=== PATIENT | male | born 1985 | race Caucasian/White ===

== ENCOUNTER 2016-07-11 14:36 | Emergency (ER) | payer SELFPAY ==
[~2016-07-11] VITALS: Ht 177.8 cm; Wt 96.2 kg
[~2016-07-11 14:36] MED LIST: CLIN-62 PO; HYDR1TAB8 PO
--- OUTSIDE RECORDS SUMMARY | 2016-07-11 14:42 | XMS REPORT | Continuity of Care Document ---
Author Author [facility] Address Unknown Phone Unavailable Allergies Medications Problems Date Dx Coded Attending Type Code Diagnosis Diagnosed By 03/12/2012 OFELIA HOLCOMB DO 300.00 AN ANXIETY UNSPEC 03/12/2012 300.00 AN ANXIETY UNSPEC 03/12/2012 OFELIA HOLCOMB DO 300.00 AN ANXIETY UNSPEC 03/12/2012 300.00 AN ANXIETY UNSPEC 03/12/2012 POLLY VALERIO PHD 300.00 AN ANXIETY UNSPEC 03/12/2012 HARI VAZQUEZ MD 300.00 AN ANXIETY UNSPEC 03/12/2012 300.00 AN ANXIETY UNSPEC 03/12/2012 300.00 AN ANXIETY UNSPEC 03/12/2012 OFELIA HOLCOMB DO 300.00 AN ANXIETY UNSPEC 03/12/2012 OFELIA HOLCOMB DO 300.00 AN ANXIETY UNSPEC 03/12/2012 300.00 AN ANXIETY UNSPEC 05/23/2012 558.9 OTHER AND UNSPECIFIED NONINFECTIOUS GASTROENTERITIS AND COLITIS 05/23/2012 OFELIA HOLCOMB DO 558.9 Other And Unspecified Noninfectious Gastroenteritis And Colitis 05/23/2012 558.9 Other And Unspecified Noninfectious Gastroenteritis And Colitis 05/23/2012 POLLY VALERIO PHD 558.9 Other And Unspecified Noninfectious Gastroenteritis And Colitis 05/23/2012 HARI VAZQUEZ MD 558.9 Other And Unspecified Noninfectious Gastroenteritis And Colitis 05/23/2012 558.9 Other And Unspecified Noninfectious Gastroenteritis And Colitis 05/23/2012 558.9 Other And Unspecified Noninfectious Gastroenteritis And Colitis 05/23/2012 OFELIA HOLCOMB DO 558.9 Other And Unspecified Noninfectious Gastroenteritis And Colitis 05/23/2012 OFELIA HOLCOMB DO 558.9 Other And Unspecified Noninfectious Gastroenteritis And Colitis 05/28/2012 OFELIA HOLCOMB DO 311 DEPRESSIVE DISORDER NOS 05/28/2012 311 DEPRESSIVE DISORDER NOS 05/28/2012 POLLY VALERIO PHD 311 DEPRESSIVE DISORDER NOS 05/28/2012 HARI VAZQUEZ MD 311 DEPRESSIVE DISORDER NOS 05/28/2012 311 DEPRESSIVE DISORDER NOS 05/28/2012 311 DEPRESSIVE DISORDER NOS 05/28/2012 OFELIA HOLCOMB DO 311 DEPRESSIVE DISORDER NOS 05/28/2012 OFELIA HOLCOMB DO 311 DEPRESSIVE DISORDER NOS 07/11/2012 296.90 MOOD DISORDER NOS 07/11/2012 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 07/11/2012 POLLY VALERIO PHD 296.90 MOOD DISORDER NOS 07/11/2012 POLLY VALERIO PHD 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 07/11/2012 HARI VAZQUEZ MD 296.90 MOOD DISORDER NOS 07/11/2012 HARI VAZQUEZ MD 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 07/11/2012 296.90 MOOD DISORDER NOS 07/11/2012 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 07/11/2012 296.90 MOOD DISORDER NOS 07/11/2012 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 Visit Date/Time Discharge Status Pt. Type Provider Facility Loc./Unit Complaint [id number] 05/29/2013 16:03:00 05/29/2013 23: 59:59 CLS Outpatient OFELIA HOLCOMB DO [id number] 01/19/2013 17:52:00 01/19/2013 23: 59:59 CLS Outpatient OFELIA HOLCOMB DO [id number] 07/30/2012 15:23:00 07/30/2012 23: 59:59 CLS Outpatient HARI VAZQUEZ MD [id number] 07/15/2012 16:49:00 07/15/2012 23: 59:59 CLS Outpatient TEODORO GOOD, POLLY Shipman [id number] 07/11/2012 08:54:00 07/11/2012 23: 59:59 CLS Outpatient [id number] 05/28/2012 17:35:00 05/28/2012 23: 59:59 CLS Outpatient OFELIA HOLCOMB DO [id number] 05/23/2012 14:55:00 05/23/2012 23: 59:59 CLS Outpatient [id number] 03/12/2012 15:03:00 03/12/2012 23: 59:59 [place] [id number] 03/12/2012 15:03:00 03/12/2012 23: 59:59 CLS Outpatient [id number] 01/13/2013 17:50:00 Document Registration [id number] 10/30/2012 17:08:00 Document Registration
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
[2016-07-11 15:22] LABS: BASOPHILS % (AUTO) 0 % (0-10); EOSINOPHILS # (AUTO) 0.1 10^3/uL (0.0-0.3); EOSINOPHILS % (AUTO) 2 % (0-10); LYMPHOCYTES # (AUTO) 1.8 X 10^3 (1.0-4.0); LYMPHOCYTES % (AUTO) 25 % (12-44); MEAN CORPUSCULAR HEMOGLOBIN 32 PG (25-34); MEAN CORPUSCULAR HGB CONC 37 G/DL (32-36); MEAN CORPUSCULAR VOLUME 87 FL (80-99); MEAN PLATELET VOLUME 8.9 FL (7.4-10.4); MONOCYTES # (AUTO) 0.6 X 10^3 (0.0-1.0); MONOCYTES % (AUTO) 8 % (0-12); NEUTROPHILS # (AUTO) 4.7 X 10^3 (1.8-7.8); NEUTROPHILS % (AUTO) 66 % (42-75); PLATELET COUNT 315 10^3/uL (130-400); RED BLOOD COUNT 4.93 10^6/uL (4.35-5.85); WHITE BLOOD COUNT 7.2 10^3/uL (4.3-11.0)
[2016-07-11 15:23] LABS: BILIRUBIN,URINE NEGATIVE (NEGATIVE); KETONES,URINE NEGATIVE (NEGATIVE); LEUKOCYTE ESTERASE ,URINE NEGATIVE (NEGATIVE); NITRITE,URINE NEGATIVE (NEGATIVE); PH,URINE 6 (5-9); PROTEIN,URINE NEGATIVE (NEGATIVE); UROBILINOGEN,URINE NORMAL (NORMAL)
[2016-07-11 15:37] LABS: SQUAMOUS EPITHELIAL CELL,UR RARE /HPF
[2016-07-11] MEDS ORDERED: IOHEXOL 350 MG/ML 100 ML (OMNIPAQUE 350) VIAL IV ONE (15:45)
[2016-07-11] MEDS ORDERED: CATHETER FLUSH 10 ML SYR IV PRN (15:45)
[2016-07-11] MEDS ORDERED: NS 100 ML (IVPB) BAG IV ONE (15:45)
[2016-07-11 15:47] LABS: ALBUMIN 4.2 G/DL (3.2-4.5); BILIRUBIN,TOTAL 1.1 MG/DL (0.1-1.0); CALCIUM 8.8 MG/DL (8.5-10.1); CREATININE SERUM 1.49 MG/DL (0.60-1.30); POTASSIUM 4.5 MMOL/L (3.6-5.0); TOTAL PROTEIN 6.7 G/DL (6.4-8.2)
[2016-07-11] MEDS ORDERED: NS IV 1000 ML 1,000 ML IV ONE (15:51)
[2016-07-11] MEDS ORDERED: inSUlin (REGULAR) HUMAN 1 UNIT/0.01 ML (CHARGE PER UNIT) IV ONE (16:00)
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
[2016-07-11] MEDS ORDERED: NAPR500T3 PO (16:49)
[2016-07-11 17:20] VITALS: BP 123/78
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
== END 2016-07-11 17:20 | disposition home or self-care (01) ==
LOC: EDUNIT# 14:36 → ER 14:39
DX: S39.012A Strain of muscle, fascia and tendon of lower back, initial encounter (principal); S20.212A Contusion of left front wall of thorax, initial encounter; E11.65 Type 2 diabetes mellitus with hyperglycemia; F17.210 Nicotine dependence, cigarettes, uncomplicated; V43.62XA Car passenger injured in collision with other type car in traffic accident, initial encounter; Y92.410 Unspecified street and highway as the place of occurrence of the external cause; Y99.8 Other external cause status
CPT/HCPCS: 36415; 71020; 71260; 72131; 74177; 80053; 81000; 82150; 82962; 83036; 83690; 85025; 93005; 93041; 96361; 96374

== ENCOUNTER → 2016-08-04 | Outpatient (CLI) | payer SELFPAY ==
[~2016-08-04] MED LIST changes: +NAPR500T3 PO
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
== END ==
LOC: RAD 13:04
PROVIDERS: ATTEND Nurse Practitioner Community Health
DX: M54.16 Radiculopathy, lumbar region (principal); M54.42 Lumbago with sciatica, left side; M54.41 Lumbago with sciatica, right side
CPT/HCPCS: 72148

== ENCOUNTER 2016-10-17 22:37 | Observation (INO) | payer OTHER ==
[~2016-10-17] VITALS: Ht 177.8 cm; Wt 100.7 kg
[2016-10-17] MEDS ORDERED: INSU100V16 SC (22:49)
[2016-10-17] MEDS ORDERED: LISI10TA2 PO (22:49)
[2016-10-17] MEDS ORDERED: ALPR1TAB7 PO (22:49)
[2016-10-17] MEDS ORDERED: METF500T8 PO (22:49)
[2016-10-17] MEDS ORDERED: ZOLP10TA5 PO (22:49)
[2016-10-17] MEDS ORDERED: INSU100I29 SC (22:49)
--- NOTE | 2016-10-17 22:53 | ED Syncope ---
General Chief Complaint: General Problems/Pain Stated Complaint: DIABETES/BLACKING OUT Nursing Triage Note: Patient reports being diagnosed with diabetes 2 months ago and starting on insulin, patient reports that since then he has been 'falling out' patient reports that he falls asleep easily and blacks out Source of Information: Patient, Spouse Exam Limitations: Other (patient very drowsy) History of Present Illness Time Seen by Provider: 22:45 Initial Comments Patient presents along c/ his c/ c/o passing out and excessive drowsiness. Apparently patient was dx c/ IDDM approximately 2 months ago and started on insulin @ that time. These episodes began shortly there after and have been becoming worse. Had an episode of "falling out" while @ work today while he was up on a ladder and his boss sent him home. Denies drug abuse or ETOH use. No recent head injury. Reports his BS was over 300 [employer]ISTANT but he took a dose of Humalog. States his sugars usually run around 300. Timing/Prior Episodes: Multiple Episodes Today, Recent History Symptoms Prior to Episode: Unknown Precipitating Factors: Other (unknown) Loss of Consciousness: Brief (Seconds) Current Symptoms: Other (drowsy; sleepy) Allergies and Home Medications Allergies Coded Allergies: No Known Drug Allergies (Unverified , 12/20/11) Home Medications Alprazolam 1 Mg Tablet, #60 (Reported) Clindamycin Hcl 150 Mg Cap, 1 EACH PO QID, #20 (Reported) Hydrocodone Bit/Ibuprofen 1 Each Tablet, 1 EACH PO q 4 hr prn, #24 (Reported) Insulin Aspart 100 Unit/1 Ml Susp, #20 (Reported) Insulin Detemir 100 Unit/1 Ml Insuln.pen, #15 (Reported) Lisinopril 10 Mg Tablet, #30 (Reported) Metformin HCl 500 Mg Tab.er.24h, #120 (Reported) Naproxen 500 Mg Tablet, 500 MG PO BID, #20 Prescribed by: IVAN VASQUEZ on 07/11/16 1649 Zolpidem Tartrate 10 Mg Tablet, #30 (Reported) Constitutional: see HPI Psychiatric/Neurological: See HPI, Other (syncope; hypersomnolence) All Other Systems Reviewed Negative Unless Noted: Yes (Negative excepted noted.) Past Ichitxo-Cjrerr-Eqqfbv Hx Patient Social History Alcohol Use: Rarely Uses Recreational Drug Use: No Smoking Status: Current Everyday Smoker Type Used: Cigarettes Recent Foreign Travel: No Contact w/Someone Who Travel: No Recent Infectious Disease Expo: No Recent Hopitalizations: No Surgeries HX Surgeries: Yes (L SHOULDER SCOPE, JAW FX/REPAIR) Surgeries: Orthopedic Respiratory Hx Respiratory Disorders: No Cardiovascular Hx Cardiac Disorders: No Neurological Hx Neurological Disorders: No Reproductive System Hx Reproductive Disorders: No Genitourinary Hx Genitourinary Disorders: No Gastrointestinal Hx Gastrointestinal Disorders: No Musculoskeletal Hx Musculoskeletal Disorders: No Endocrine Hx Endocrine Disorders: No Endocrine Disorders: Diabetes, Insulin dep HEENT HX ENT Disorders: No Cancer Hx Cancer: No Psychosocial Hx Psychiatric Problems: Yes Behavioral Health Disorders: Anxiety Integumentary HX Skin/Integumentary Disorder: No Blood Transfusions Hx Blood Disorders: No Physical Exam Vital Signs Vital Sign - Last 12Hours 10/17/16 22:45 Temp 98.2 Pulse 95 Resp 18 B/P (MAP) 135/92 Pulse Ox 99 Capillary Refill : Less Than 3 Seconds General Appearance: No Apparent Distress, WD/WN HEENT: PERRL/EOMI, Normal ENT Inspection, Pharynx Normal Neck: Normal Inspection, Supple Cardiovascular: Regular Rate, Rhythm Respiratory: No Respiratory Distress Neurologic/Psychiatric: Other (very drowsy; acts markedly intoxicated) Cranial Nerves: PERRL Coordination/Gait: Other (sitting up and moving everything, but struggling to stay awake.) Skin: Warm/Dry Progress/Results/Core Measures Results/Orders Lab Results Laboratory Tests Test 10/17/16 22:46 10/17/16 23:00 10/17/16 23:40 Range/Units Glucometer 125 H 70-110 MG/DL White Blood Count 9.7 4.3-11.0 10^3/uL Red Blood Count 5.12 4.35-5.85 10^6/uL Hemoglobin 16.1 13.3-17.7 G/DL Hematocrit 46 40-54 % Mean Corpuscular Volume 90 80-99 FL Mean Corpuscular Hemoglobin 31 25-34 PG Mean Corpuscular Hemoglobin Concent 35 32-36 G/DL Red Cell Distribution Width 12.5 10.0-14.5 % Platelet Count 401 H 130-400 10^3/uL Mean Platelet Volume 8.7 7.4-10.4 FL Neutrophils (%) (Auto) 57 42-75 % Lymphocytes (%) (Auto) 32 12-44 % Monocytes (%) (Auto) 7 0-12 % Eosinophils (%) (Auto) 3 0-10 % Basophils (%) (Auto) 0 0-10 % Neutrophils # (Auto) 5.5 1.8-7.8 X 10^3 Lymphocytes # (Auto) 3.1 1.0-4.0 X 10^3 Monocytes # (Auto) 0.7 0.0-1.0 X 10^3 Eosinophils # (Auto) 0.3 0.0-0.3 10^3/uL Basophils # (Auto) 0.0 0.0-0.1 10^3/uL D-Dimer 0.38 0.00-0.49 UG/ML Sodium Level 140 135-145 MMOL/L Potassium Level 3.6 3.6-5.0 MMOL/L Chloride Level 103 98-107 MMOL/L Carbon Dioxide Level 23 21-32 MMOL/L Anion Gap 14 5-14 MMOL/L Blood Urea Nitrogen 16 7-18 MG/DL Creatinine 0.82 0.60-1.30 MG/DL Estimat Glomerular Filtration Rate > 60 BUN/Creatinine Ratio 20 0-20 Glucose Level 129 H 70-105 MG/DL Hemoglobin A1c 8.8 H 4.5-6.2 % Calcium Level 9.3 8.5-10.1 MG/DL Magnesium Level 2.6 H 1.8-2.4 MG/DL Total Bilirubin 0.7 0.1-1.0 MG/DL Aspartate Amino Transf (AST/SGOT) 13 5-34 U/L Alanine Aminotransferase (ALT/SGPT) 21 0-55 U/L Alkaline Phosphatase 108 40-136 U/L Ammonia 46 H 11-32 UMOL/L Troponin I < 0.30 <0.30 NG/ML Total Protein 6.9 6.4-8.2 GM/DL Albumin 4.2 3.2-4.5 GM/DL Thyroid Stimulating Hormone (TSH) 1.00 0.35-4.94 UIU/ML Serum Alcohol < 10 <10 MG/DL Urine Color YELLOW Urine Clarity CLEAR Urine pH 6 5-9 Urine Specific [place] 1.015 L 1.016-1.022 Urine Protein NEGATIVE NEGATIVE Urine Glucose (UA) 4+ H NEGATIVE Urine Ketones NEGATIVE NEGATIVE Urine Nitrite NEGATIVE NEGATIVE Urine Bilirubin NEGATIVE NEGATIVE Urine Urobilinogen NORMAL NORMAL MG/DL Urine Leukocyte Esterase NEGATIVE NEGATIVE Urine RBC (Auto) NEGATIVE NEGATIVE Urine RBC NONE /HPF Urine WBC NONE /HPF Urine Squamous Epithelial Cells RARE /HPF Urine Crystals NONE /LPF Urine Bacteria NEGATIVE /HPF Urine Casts NONE /LPF Urine Mucus NEGATIVE /LPF Urine Culture Indicated NO Urine Opiates Screen NEGATIVE NEGATIVE Urine Oxycodone Screen NEGATIVE NEGATIVE Urine Methadone Screen NEGATIVE NEGATIVE Urine Propoxyphene Screen NEGATIVE NEGATIVE Urine Barbiturates Screen NEGATIVE NEGATIVE Ur Tricyclic Antidepressants Screen NEGATIVE NEGATIVE Urine Phencyclidine Screen NEGATIVE NEGATIVE Urine Amphetamines Screen POSITIVE H NEGATIVE Urine Methamphetamines Screen NEGATIVE NEGATIVE Urine Benzodiazepines Screen POSITIVE H NEGATIVE Urine Cocaine Screen NEGATIVE NEGATIVE Urine Cannabinoids Screen NEGATIVE NEGATIVE My Orders Orders - KWAME URIBE DO Saline Lock/Iv-Start (10/17/16 22:53) Orthostatic Vital Signs (10/17/16 22:53) Ekg Tracing (10/17/16 22:53) Alcohol (10/17/16 22:53) Ammonia (10/17/16 22:53) Cbc With Automated Diff (10/17/16 22:53) Comprehensive Metabolic Panel (10/17/16 22:53) Fibrin Degradation Products (10/17/16 22:53) Drug Screen Stat (Urine) (10/17/16 22:53) Magnesium (10/17/16 22:53) Thyroid Stimulating Hormone (10/17/16 22:53) Troponin I (10/17/16 22:53) Ua Culture If Indicated (10/17/16 22:53) Ct Head Wo (10/17/16 22:53) Hemoglobin A1c (10/17/16 22:55) Ns Iv 1000 Ml (Sodium Chloride 0.9%) (10/17/16 23:03) Medications Given in ED Current Medications Medications Dose Ordered Sig/Josefa Route Start Time Stop Time Status Last Admin Dose Admin Sodium Chloride 1,000 ml @ 0 mls/hr Q0M ONCE IV 10/17/16 23:03 10/17/16 23:27 DC 10/17/16 23:24 0 MLS/HR Vital Signs/I&O Vital Sign - Last 12Hours 10/17/16 22:45 Temp 98.2 Pulse 95 Resp 18 B/P (MAP) 135/92 Pulse Ox 99 Blood Pressure Mean: 106 Point of Care Testing Finger Stick Blood Glucose: 125 Blood Glucose Action Taken: RN AND DR NOTIFIED ECG Initial ECG Impression Date: Oct 17, 2016 Initial ECG Impression Time: 23:05 Initial ECG Rate: 82 Initial ECG Rhythm: Normal Sinus Initial ECG Intervals: Normal Initial ECG Impression: Normal Initial ECG Comparisson: Unchanged Diagnostic Imaging Diagonstic Imaging: CT Plain Films/CT/US/NM/MRI: head Reviewed: Reviewed [facility] Study (nothing acute) Departure Communication Time/Spoke to Admitting Phy: 00:45 Impression Impression: Primary Impression: Altered level of consciousness Additional Impression: Hyperammonemia Disposition: ADMITTED INPATIENT Condition: Stable Decision to Admit Reason: Admit from ER (General) Decision to Admit/Date: Oct 18, 2016 Time/Decision to Admit Time: 00:50 Departure-Patient Inst. Referrals: [facility] (PCP/Family) Primary Care Physician KWAME URIBE DO Oct 17, 2016 22:53
[2016-10-17] MEDS ORDERED: NS IV 1000 ML 1,000 ML IV ONE (23:03)
[2016-10-17 23:13] LABS: BASOPHILS % (AUTO) 0 % (0-10); EOSINOPHILS # (AUTO) 0.3 10^3/uL (0.0-0.3); EOSINOPHILS % (AUTO) 3 % (0-10); LYMPHOCYTES # (AUTO) 3.1 X 10^3 (1.0-4.0); LYMPHOCYTES % (AUTO) 32 % (12-44); MEAN CORPUSCULAR HEMOGLOBIN 31 PG (25-34); MEAN CORPUSCULAR HGB CONC 35 G/DL (32-36); MEAN CORPUSCULAR VOLUME 90 FL (80-99); MEAN PLATELET VOLUME 8.7 FL (7.4-10.4); MONOCYTES # (AUTO) 0.7 X 10^3 (0.0-1.0); MONOCYTES % (AUTO) 7 % (0-12); NEUTROPHILS # (AUTO) 5.5 X 10^3 (1.8-7.8); NEUTROPHILS % (AUTO) 57 % (42-75); PLATELET COUNT 401 10^3/uL (130-400); RED BLOOD COUNT 5.12 10^6/uL (4.35-5.85); RED CELL DISTRIBUTION WIDTH 12.5 % (10.0-14.5); WHITE BLOOD COUNT 9.7 10^3/uL (4.3-11.0)
[2016-10-17 23:31] LABS: ALANINE AMINOTRANSFERASE 21 U/L (0-55); ALBUMIN 4.2 GM/DL (3.2-4.5); ANION GAP 14 MMOL/L (5-14); ASPARTATE AMINO TRANSFERASE 13 U/L (5-34); BILIRUBIN,TOTAL 0.7 MG/DL (0.1-1.0); BLOOD UREA NITROGEN 16 MG/DL (7-18); BUN/CREATININE RATIO 20 (0-20); CALCIUM 9.3 MG/DL (8.5-10.1); CARBON DIOXIDE 23 MMOL/L (21-32); CHLORIDE 103 MMOL/L (98-107); CREATININE SERUM 0.82 MG/DL (0.60-1.30); GFR ESTIMATED > 60; GLUCOSE 129 MG/DL (70-105); HEMOLYSIS 10 (0-29); ICTERUS 0.7 (0-1.9); LIPEMIA 43 (0-49); MAGNESIUM 2.6 MG/DL (1.8-2.4); POTASSIUM 3.6 MMOL/L (3.6-5.0); SODIUM 140 MMOL/L (135-145); TOTAL PROTEIN 6.9 GM/DL (6.4-8.2)
[2016-10-17 23:43] LABS: ALCOHOL < 10 MG/DL (<10)
[2016-10-17 23:51] LABS: TROPONIN I < 0.30 NG/ML (<0.30)
[2016-10-17 23:51] LABS: BILIRUBIN,URINE NEGATIVE (NEGATIVE); KETONES,URINE NEGATIVE (NEGATIVE); LEUKOCYTE ESTERASE ,URINE NEGATIVE (NEGATIVE); NITRITE,URINE NEGATIVE (NEGATIVE); PH,URINE 6 (5-9); PROTEIN,URINE NEGATIVE (NEGATIVE); UROBILINOGEN,URINE NORMAL (NORMAL)
[2016-10-17 23:56] LABS: SQUAMOUS EPITHELIAL CELL,UR RARE /HPF
[2016-10-18 00:31] LABS: AMMONIA 46 UMOL/L (11-32)
[2016-10-18 01:50] VITALS: BP 121/68
[2016-10-18] MEDS ORDERED: NS IV 1000 ML 1,000 ML ONE (01:51)
[2016-10-18] MEDS: NS IV 1000 ML 1,000 ML IV SCH ×2 (02:00→10:05)
[2016-10-18] MEDS ORDERED: CATHETER FLUSH 10 ML SYR IV PRN (02:15)
[2016-10-18 04:00] VITALS: BP 126/70
[2016-10-18] MEDS: inSUlin (REGULAR) HUMAN 1 UNIT/0.01 ML (CHARGE PER UNIT) SC SCH ×2 (05:18→11:48)
[2016-10-18] MEDS ORDERED: CATHETER FLUSH 10 ML SYR IV SCH (06:00)
[2016-10-18 08:00] VITALS: BP 141/80
--- NOTE | 2016-10-18 08:10 | Diagnostic Imaging Report ---
PROCEDURE: CT head without contrast. TECHNIQUE: Multiple contiguous axial images were obtained through the brain without the use of intravenous contrast. INDICATION: Dizziness, falls . FINDINGS: There is no intracranial hemorrhage, edema or mass effect. The brain parenchyma appears unremarkable. No hydrocephalus. The visualized portions of the orbits and paranasal sinuses appear unremarkable. IMPRESSION: Unremarkable study. This reading agrees with the [facility] report. Dictated by: Dictated on workstation # [id number]
--- NOTE | 2016-10-18 08:39 | Diagnostic Imaging Report ---
Portable upright radiograph of the chest. INDICATION: Dizziness. FINDINGS: The lungs are clear. The heart size is normal. No effusion or pneumothorax. The mediastinum and shirley appear unremarkable. IMPRESSION: Unremarkable exam. Dictated by: Dictated on workstation # [id number]
--- NOTE | 2016-10-18 09:04 | Short Stay Summary ---
HPI History of Present Illness: 31yo gentleman presented to ER with changes in level of consciousness. Pt's states that he has been having episodes where he will be talking to her, and then he drops his head. HE wakes up confused. This happened last night when he passed out and then came to ER. THese episodes have been happening in [facility] past few weeks, but they are now occurring more frequently. He has had them 4 times in the past 4 days. He has also had episodes where his right upper extremity is shaking. In addition to these episodes, Geraldo was recently diagnosed with diabetes and was put on insulin. is concerned that he is bottoming out after the insulin doses and that they are too high. They have met with Gemma once, and his diabetes is being managed by Donnell ordonez. Source: patient, family Exam Limitations: clinical condition (Patient awakens to questions but did not awaken enough to tell me the history) Date seen by provider: Oct 18, 2016 Time Seen by Provider: 08:30 Attending Physician Concetta Smith MD [place] [facility] [place] Date of Admission Oct 18, 2016 at 00:51 Home Medications Home Medications Reviewed patient Home Medication Reconciliation Form Allergies Coded Allergies: No Known Drug Allergies (Unverified , 12/20/11) RSU-Hbyqwt-Vwzlrb Hx Patient Social History Alcohol Use: Rarely Uses Recreational Drug Use: No Smoking Status: Current Everyday Smoker Type Used: Cigarettes Recent Foreign Travel: No Contact w/other who traveled: No Recent Hopitalizations: No Recent Infectious Disease Expo: No Physical Abuse Screen: No Sexual Abuse: No Review of Systems ([facility]) Time Seen by Provider: 08:30 Constitutional: no symptoms reported All Other Systems Reviewed Negative Unless Noted: Yes (Negative excepted noted.) Reviewed Test Results Reviewed Test Results Lab Laboratory Tests Test 10/17/16 22:46 10/17/16 23:00 10/17/16 23:40 10/18/16 05:09 Range/Units Glucometer 125 H 218 H 70-110 MG/DL White Blood Count 9.7 4.3-11.0 10^3/uL Red Blood Count 5.12 4.35-5.85 10^6/uL Hemoglobin 16.1 13.3-17.7 G/DL Hematocrit 46 40-54 % Mean Corpuscular Volume 90 80-99 FL Mean Corpuscular Hemoglobin 31 25-34 PG Mean Corpuscular Hemoglobin Concent 35 32-36 G/DL Red Cell Distribution Width 12.5 10.0-14.5 % Platelet Count 401 H 130-400 10^3/uL Mean Platelet Volume 8.7 7.4-10.4 FL Neutrophils (%) (Auto) 57 42-75 % Lymphocytes (%) (Auto) 32 12-44 % Monocytes (%) (Auto) 7 0-12 % Eosinophils (%) (Auto) 3 0-10 % Basophils (%) (Auto) 0 0-10 % Neutrophils # (Auto) 5.5 1.8-7.8 X 10^3 Lymphocytes # (Auto) 3.1 1.0-4.0 X 10^3 Monocytes # (Auto) 0.7 0.0-1.0 X 10^3 Eosinophils # (Auto) 0.3 0.0-0.3 10^3/uL Basophils # (Auto) 0.0 0.0-0.1 10^3/uL D-Dimer 0.38 0.00-0.49 UG/ML Sodium Level 140 135-145 MMOL/L Potassium Level 3.6 3.6-5.0 MMOL/L Chloride Level 103 98-107 MMOL/L Carbon Dioxide Level 23 21-32 MMOL/L Anion Gap 14 5-14 MMOL/L Blood Urea Nitrogen 16 7-18 MG/DL Creatinine 0.82 0.60-1.30 MG/DL Estimat Glomerular Filtration Rate > 60 BUN/Creatinine Ratio 20 0-20 Glucose Level 129 H 70-105 MG/DL Hemoglobin A1c 8.8 H 4.5-6.2 % Calcium Level 9.3 8.5-10.1 MG/DL Magnesium Level 2.6 H 1.8-2.4 MG/DL Total Bilirubin 0.7 0.1-1.0 MG/DL Aspartate Amino Transf (AST/SGOT) 13 5-34 U/L Alanine Aminotransferase (ALT/SGPT) 21 0-55 U/L Alkaline Phosphatase 108 40-136 U/L Ammonia 46 H 11-32 UMOL/L Troponin I < 0.30 <0.30 NG/ML Total Protein 6.9 6.4-8.2 GM/DL Albumin 4.2 3.2-4.5 GM/DL Thyroid Stimulating Hormone (TSH) 1.00 0.35-4.94 UIU/ML Serum Alcohol < 10 <10 MG/DL Urine Color YELLOW Urine Clarity CLEAR Urine pH 6 5-9 Urine Specific [place] 1.015 L 1.016-1.022 Urine Protein NEGATIVE NEGATIVE Urine Glucose (UA) 4+ H NEGATIVE Urine Ketones NEGATIVE NEGATIVE Urine Nitrite NEGATIVE NEGATIVE Urine Bilirubin NEGATIVE NEGATIVE Urine Urobilinogen NORMAL NORMAL MG/DL Urine Leukocyte Esterase NEGATIVE NEGATIVE Urine RBC (Auto) NEGATIVE NEGATIVE Urine RBC NONE /HPF Urine WBC NONE /HPF Urine Squamous Epithelial Cells RARE /HPF Urine Crystals NONE /LPF Urine Bacteria NEGATIVE /HPF Urine Casts NONE /LPF Urine Mucus NEGATIVE /LPF Urine Culture Indicated NO Urine Opiates Screen NEGATIVE NEGATIVE Urine Oxycodone Screen NEGATIVE NEGATIVE Urine Methadone Screen NEGATIVE NEGATIVE Urine Propoxyphene Screen NEGATIVE NEGATIVE Urine Barbiturates Screen NEGATIVE NEGATIVE Ur Tricyclic Antidepressants Screen NEGATIVE NEGATIVE Urine Phencyclidine Screen NEGATIVE NEGATIVE Urine Amphetamines Screen POSITIVE H NEGATIVE Urine Methamphetamines Screen NEGATIVE NEGATIVE Urine Benzodiazepines Screen POSITIVE H NEGATIVE Urine Cocaine Screen NEGATIVE NEGATIVE Urine Cannabinoids Screen NEGATIVE NEGATIVE Test 10/18/16 05:15 Range/Units Ammonia 39 H 11-32 UMOL/L Physical Exam-(CHC) Physical Exam Vital Signs VS - Last 72 Hours, by Label 10/17/16 10/18/16 10/18/16 10/18/16 22:45 01:39 01:50 03:33 Temp 98.2 97.3 Pulse 95 80 71 63 Resp 18 14 16 B/P (MAP) 135/92 121/68 Pulse Ox 99 97 97 O2 Delivery Room Air Room Air 10/18/16 10/18/16 04:00 08:00 Temp 96.2 96.3 Pulse 69 66 Resp 16 20 B/P (MAP) 126/70 141/80 Pulse Ox 97 96 O2 Delivery Room Air Room Air Capillary Refill : Less Than 3 Seconds General Appearance: WD/WN, no apparent distress HEENT: PERRL/EOMI, normal ENT inspection, pharynx normal Neck: non-tender, full range of motion, supple, normal inspection Respiratory: chest non-tender, lungs clear, normal breath sounds, no respiratory distress, no accessory muscle use Cardiovascular: regular rate, rhythm, no edema, no gallop, no JVD, no murmur Gastrointestinal: normal bowel sounds, non tender, soft, no organomegaly, no pulsatile mass Extremities: normal range of motion, non-tender, normal inspection, no pedal edema, no calf tenderness, normal capillary refill Neurologic/Psychiatric: cancer center director II-XII nml as tested, no motor/sensory deficits, alert (easily aroused but sleepy), normal mood/affect, oriented x 3 Skin: normal color, warm/dry Short Stay Diagnosis Discharge Diagnosis-Short Stay Admission Diagnosis SEIZURE DISORDER AMPHETAMINE USE TYPE 2 DIABETES MELLITUS - INSULIG REQUIRING Final Discharge Diagnosis SEIZURE DISORDER AMPHETAMINE USE TYPE 2 DIABETES MELLITUS - INSULIG REQUIRING Conclusion Plan SEIZURE DISORDER I suspect a new-onset seizure disorder in this patient. I called [facility] and spoke with Dr Ayon, neurologist. He states that these episodes are not likely to be seizures but more likely related to withdrawal from benzos. He advised me to change from Xanax to Klonopin 0.5mg BID. This would help with withdrawals as well as any seizures. He also stated that Gregorio should follow up with a neurologist as an outpatient. He gave the number [phone] to call. I would like for Gregorio to have an outpatient EEG done in the meantime as neurology is quite booked out. There is also a chance that his BS are dropping too low with christa administration of insulin, and we should back off on the insulin until we figure whether it is a part of the problem. Finally, I have instructed both Gregorio and his that he should not drive at all nor should he be working until these episodes are resolved and we have a reason that they are happening. AMPHETAMINE USE I asked Gregorio's why eh was positive for amphetamines. She told me taht he was taking a sinus medication. I do want to entertain the thought that he may be having drug reactions, especially if he is using Xanax and Ambien (both of which he is prescribed) as well as taking amphetamines together. TYPE 2 DIABETES MELLITUS - INSULIn REQUIRING Will send a note to his PCP regarding this glucose control. May not want it to be quite so tight in christa meantime. I have asked his to reduce the insulin dose from 25-30 to 20 units with meals for now. He is supossed to be doing Levemir 30 units BID but has only been doing levemir 50 units HS. I suspect there is a degree of miscommunication here, and this should be discussed at the follow up visits so we can see if he is truly bottoming out. Clinical Quality Measures DVT/VTE Risk/Contraindication: Risk Factor Score Per Nursin RFS Level Per Nursing on Admit: 1=Low/No VTE PPX Copy Copies To 1: CONCETTA ALEXANDER APRN, MD Oct 18, 2016 09:04
[2016-10-18] MEDS ORDERED: HYDR-3820 PO (09:38)
[2016-10-18] MEDS ORDERED: CLON0.5T PO (10:18)
--- NOTE | 2016-10-18 10:23 | Discharge Instructions ---
Discharge [facility] Discharge Medications New, Converted or Re-Newed RX: Call to Patients Pharmacy New Medications: Clonazepam (Klonopin) 0.5 Mg Tablet 0.5 MG PO BID for 14 Days, #28 TAB 0 Refills Continued Medications: Hydrocodone/Acetaminophen (Hydrocodon-Acetaminophn 10-325) 1 Each Tablet 1 TAB PO BID PRN for PAIN-MODERATE, TAB Insulin Aspart (Novolog) 100 Unit/1 Ml Susp 25 UNITS SC TIDWM, EA Insulin Detemir (Levemir Flextouch) 100 Unit/1 Ml Insuln.pen 50 UNITS SC HS, EA Lisinopril (Lisinopril) 10 Mg Tablet 10 MG PO DAILY, TAB Metformin HCl (Metformin HCl ER) 500 Mg Tab.er.24h 1000 MG PO BID, TAB TAKES 2 (500MG) TABLETS Discontinued Medications: Alprazolam (Alprazolam) 1 Mg Tablet 1 MG PO BID PRN for ANXIETY, TAB Zolpidem Tartrate (Zolpidem Tartrate) 10 Mg Tablet 10 MG PO HS PRN for SLEEP, TAB Patient Instructions Goal/Follow Up Appt: SaturdayOCTOBER [address] COURTNEY -DR COURTNEY WILL ARRANGE AN OUTPATIENT EEG WHICH IS THE TEST USED TO DETERMINE IF SOMEONE IS HAVING SEIZURES. Patient Instructions: PLEASE STOP THE ALPRAZOLAM AND ZOLPIDEM. START CLONAZEPAM IT WILL HELP IF THESE EPISODES ARE SEIZURES. DO NOT TAKE ANY MEDICATIONS YOU ARE NOT PRESCRIBED. YOUR URINE DRUG SCREEN WAS POSITVE FOR AMPHETAMINES; THIS COULD BE CAUSING THE EPISODES. 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 Return to The Hospital For: FURTHER EPISODES - IF THEY ARE LONGER IN DURATION OR HAPPEN MORE THAN ONCE PER DAY Activity & Diet Discharge Diet: No Restrictions Activity as Tolerated: No (SEE ABOVE FOR LIMITATIONS) Copy Copies To 1: CONCETTA ALEXANDER APRN, MD Oct 18, 2016 10:22
[2016-10-18] MEDS ORDERED: inSUlin ASPART (NovoLOG) 1 UNIT/0.01 ML (CHARGE PER UNIT) ONE (11:46)
[2016-10-18] MEDS ORDERED: inSUlin ASPART (NovoLOG) 1 UNIT/0.01 ML (CHARGE PER UNIT) SC NR (11:58)
[2016-10-18 12:00] VITALS: BP 125/68
[2016-10-18 14:27] VITALS: BP 125/68
== END 2016-10-18 10:18 | disposition home or self-care (01) ==
LOC: EDUNIT# 22:37 → ER 22:38 → 4TH 10-18 00:51 → UNDOADMOB 10-18 00:51 → 4TH 10-18 01:50 → UNDODISOB 10-18 14:30
PROVIDERS: ADMIT Pediatrics; ATTEND Pediatrics
DX: G40.909 Epilepsy, unspecified, not intractable, without status epilepticus (principal); F15.90 Other stimulant use, unspecified, uncomplicated; E11.9 Type 2 diabetes mellitus without complications; Z79.4 Long term (current) use of insulin
CPT/HCPCS: 36415; 70450; 71010; 80053; 80306; 80320; 81000; 82140; 82962; 83036; 83735; 84443; 84484; 85025; 85379; 93005; 96360; G0378

== ENCOUNTER 2016-11-15 22:38 | Inpatient (IN) | payer OTHER ==
[~2016-11-15] VITALS: Ht 177.8 cm; Wt 98.9 kg
[~2016-11-15 22:38] MED LIST changes: +ALPR1TAB7 PO; +CLON0.5T PO; +HYDR-3820 PO; +INSU100I29 SC; +INSU100V16 SC; +LISI10TA2 PO; +METF500T8 PO; +ZOLP10TA5 PO
--- OUTSIDE RECORDS SUMMARY | 2016-11-15 22:44 | XMS REPORT | Continuity of Care Document ---
Author Author [facility] Address Unknown Phone Unavailable Allergies Medications Problems [...] Procedures Code [place] [address] PSYCH DIAGNOSTIC EVALUATION 07/16/2012 55268 PSYCHO TESTING 1 HR W COMP 07/16/2012 74650 PSYTX PT&/FAMILY 45 MINUTES 01/14/2013 Results Encounters ACCT No. Visit Date/Time Discharge Status Pt. Type Provider Facility Loc./Unit Complaint [id number] 05/29/2013 16:03:00 05/29/2013 23: 59:59 CLS Outpatient OFELIA HOLCOMB DO [id number] 01/19/2013 17:52:00 01/19/2013 23: 59:59 CLS Outpatient OFELIA HOLCOMB DO [id number] 07/30/2012 15:23:00 07/30/2012 23: 59:59 CLS Outpatient HARI VAZQUEZ MD [id number] 07/15/2012 16:49:00 07/15/2012 23: 59:59 CLS Outpatient TEODORO GOOD, POLLY Shipman [id number] 07/11/2012 08:54:00 07/11/2012 23: 59:59 CLS Outpatient [id number] 05/28/2012 17:35:00 05/28/2012 23: 59:59 CLS Outpatient OFELIA HOLCOMB DO [id number] 05/23/2012 14:55:00 05/23/2012 23: 59:59 CLS Outpatient [id number] 03/12/2012 15:03:00 03/12/2012 23: 59:59 [place] [id number] 03/12/2012 15:03:00 03/12/2012 23: 59:59 CLS Outpatient [id number] 01/13/2013 17:50:00 Document Registration [id number] 10/30/2012 17:08:00 Document Registration
[2016-11-15] MEDS ORDERED: NS IV 1000 ML 1,000 ML IV ONE (23:14)
[2016-11-15] MEDS ORDERED: TETANUS,DIPTH,PERTUSS P/F (BOOSTRIX) 0.5 ML VIAL IM ONE (23:15)
[2016-11-15] MEDS ORDERED: CLINDAMYCIN INJECTION 900 MG in NS (IVPB) 50 ML IV ONE (23:15)
[2016-11-15 23:35] LABS: RED BLOOD COUNT 4.99 10^6/uL (4.35-5.85)
[2016-11-15 23:36] LABS: BASOPHILS % (AUTO) 0 % (0-10); EOSINOPHILS # (AUTO) 0.2 10^3/uL (0.0-0.3); EOSINOPHILS % (AUTO) 1 % (0-10); LYMPHOCYTES # (AUTO) 2.2 X 10^3 (1.0-4.0); LYMPHOCYTES % (AUTO) 14 % (12-44); MEAN CORPUSCULAR HEMOGLOBIN 32 PG (25-34); MEAN CORPUSCULAR HGB CONC 35 G/DL (32-36); MEAN CORPUSCULAR VOLUME 91 FL (80-99); MEAN PLATELET VOLUME 8.7 FL (7.4-10.4); MONOCYTES # (AUTO) 1.1 X 10^3 (0.0-1.0); MONOCYTES % (AUTO) 7 % (0-12); NEUTROPHILS # (AUTO) 12.5 X 10^3 (1.8-7.8); NEUTROPHILS % (AUTO) 78 % (42-75); PLATELET COUNT 349 10^3/uL (130-400); RED CELL DISTRIBUTION WIDTH 12.3 % (10.0-14.5)
[2016-11-15 23:56] LABS: ALANINE AMINOTRANSFERASE 17 U/L (0-55); ALBUMIN 4.2 GM/DL (3.2-4.5); ANION GAP 11 MMOL/L (5-14); ASPARTATE AMINO TRANSFERASE 10 U/L (5-34); BILIRUBIN,TOTAL 1.2 MG/DL (0.1-1.0); BLOOD UREA NITROGEN 12 MG/DL (7-18); BUN/CREATININE RATIO 10; CALCIUM 9.1 MG/DL (8.5-10.1); CARBON DIOXIDE 24 MMOL/L (21-32); CHLORIDE 98 MMOL/L (98-107); CREATININE SERUM 1.22 MG/DL (0.60-1.30); GFR ESTIMATED > 60; POTASSIUM 4.2 MMOL/L (3.6-5.0); SODIUM 133 MMOL/L (135-145); hs C REACTIVE PROTEIN 2.05 MG/DL (0.00-0.50)
[2016-11-15 23:57] LABS: GLUCOSE 509 MG/DL (70-105)
[2016-11-16 00:02] LABS: EOSINOPHILS % (MANUAL) 2 %; LYMPHOCYTES % (MANUAL) 18 %; NEUTROPHILS % (MANUAL) 77 %
[2016-11-16] MEDS ORDERED: inSUlin (REGULAR) HUMAN 1 UNIT/0.01 ML (CHARGE PER UNIT) IV ONE (00:15)
--- NOTE | 2016-11-16 00:58 | ED General ---
General Chief Complaint: Skin/Wound Problems Stated Complaint: LT ARM SWELLING Nursing Triage Note: c/o bite, redness, warmth Nursing Sepsis Screen: No Definite Risk Source of Information: Patient Exam Limitations: No Limitations History of Present Illness Time Seen by Provider: 22:55 Initial Comments This 31-year-old gentleman presents to the emergency room with complaints of left arm pain and swelling that started 2 days ago. The area affected has expanded rapidly with worsening symptoms throughout the day today. Margins were marked at 16:30 and he has had marked expansion of erythema since then. The affected area has at least doubled in size. Patient took doxycycline 200 mg at home this morning. He denies any fever, nausea, vomiting, or other acute symptoms. Patient does not know what the inciting factor was. He does not recall being bitten or stung. Patient has diabetes and has had elevated blood sugars. Allergies and Home Medications Allergies Coded Allergies: No Known Drug Allergies (Unverified , 12/20/11) Home Medications Clonazepam 0.5 Mg Tablet, 0.5 MG PO BID for 14 Days, #28 Ref 0 Prescribed by: CONCETTA MONAE on 10/18/16 1018 Hydrocodone/Acetaminophen 1 Each Tablet, 1 TAB PO BID PRN for PAIN-MODERATE, ( Reported) Insulin Aspart 100 Unit/1 Ml Susp, 25 UNITS SC TIDWM, (Reported) Insulin Detemir 100 Unit/1 Ml Insuln.pen, 50 UNITS SC HS, (Reported) Lisinopril 10 Mg Tablet, 10 MG PO DAILY, (Reported) Metformin HCl 500 Mg Tab.er.24h, 1,000 MG PO BID, (Reported) TAKES 2 (500MG) TABLETS Constitutional: no symptoms reported EENTM: no symptoms reported Respiratory: no symptoms reported Cardiovascular: no symptoms reported Gastrointestinal: no symptoms reported Genitourinary: no symptoms reported Musculoskeletal: no symptoms reported Skin: see HPI Psychiatric/Neurological: No Symptoms Reported Hematologic/Lymphatic: No Symptoms Reported Immunological/Allergic: no symptoms reported Past Cmsdluc-Fqyuym-Kkkrrl Hx Patient Social History Alcohol Use: Rarely Uses Recreational Drug Use: No Type Used: Cigarettes Recent Foreign Travel: No Contact w/Someone Who Travel: No Recent Infectious Disease Expo: No Recent Hopitalizations: No Immunizations Up To Date Tetanus Booster (TDap): Unknown Seasonal Allergies Seasonal Allergies: No Surgeries HX Surgeries: Yes (L SHOULDER SCOPE, JAW FX/REPAIR) Surgeries: Orthopedic Respiratory Hx Respiratory Disorders: No Cardiovascular Hx Cardiac Disorders: Yes Cardiac Disorders: Hypertension Neurological Hx Neurological Disorders: No Reproductive System Hx Reproductive Disorders: No Sexually Transmitted Disease: No HIV/AIDS: No Genitourinary Hx Genitourinary Disorders: No Gastrointestinal Hx Gastrointestinal Disorders: No Musculoskeletal Hx Musculoskeletal Disorders: No Endocrine Hx Endocrine Disorders: Yes Endocrine Disorders: Diabetes, Insulin dep HEENT HX ENT Disorders: No Cancer Hx Cancer: No Psychosocial Hx Psychiatric Problems: Yes Behavioral Health Disorders: Anxiety Integumentary HX Skin/Integumentary Disorder: No Blood Transfusions Hx Blood Disorders: No Adverse Reaction to a Blood Tr: No Physical Exam Vital Signs Vital Sign - Last 12Hours 11/15/16 11/16/16 22:45 04:15 Temp 97.1 Pulse 96 Resp 18 B/P (MAP) 128/87 Pulse Ox 99 O2 Delivery Room Air Capillary Refill : Less Than 3 Seconds General Appearance: No Apparent Distress, WD/WN HEENT: Normal ENT Inspection Neck: Normal Inspection Respiratory: Lungs Clear, Normal Breath Sounds, No Accessory Muscle Use, No Respiratory Distress Cardiovascular: Regular Rate, Rhythm, No Edema, No Murmur Gastrointestinal: Non Tender, Soft Extremity: Other (there is a large area of erythema, heat, tenderness, and induration on the left lateral upper arm. 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 Norm as Tested Skin: Other (see above) Lymphatic: No Adenopathy, No Axilla Node Tender (L) Focused Exam Lactic Acid Level Progress/Results/Core Measures Results/Orders Lab Results Laboratory Tests Test 11/15/16 23:20 11/16/16 02:13 11/16/16 04:08 Range/Units White Blood Count 16.0 H 16.8 H 4.3-11.0 10^3/uL Red Blood Count 4.99 4.52 4.35-5.85 10^6/uL Hemoglobin 15.7 14.3 13.3-17.7 G/DL Hematocrit 45 41 40-54 % Mean Corpuscular Volume 91 91 80-99 FL Mean Corpuscular Hemoglobin 32 32 25-34 PG Mean Corpuscular Hemoglobin Concent 35 35 32-36 G/DL Red Cell Distribution Width 12.3 12.3 10.0-14.5 % Platelet Count 349 316 130-400 10^3/uL Mean Platelet Volume 8.7 8.8 7.4-10.4 FL Neutrophils (%) (Auto) 78 H 72 42-75 % Lymphocytes (%) (Auto) 14 18 12-44 % Monocytes (%) (Auto) 7 8 0-12 % Eosinophils (%) (Auto) 1 2 0-10 % Basophils (%) (Auto) 0 0 0-10 % Neutrophils # (Auto) 12.5 H 12.2 H 1.8-7.8 X 10^3 Lymphocytes # (Auto) 2.2 3.0 1.0-4.0 X 10^3 Monocytes # (Auto) 1.1 H 1.4 H 0.0-1.0 X 10^3 Eosinophils # (Auto) 0.2 0.3 0.0-0.3 10^3/uL Basophils # (Auto) 0.0 0.0 0.0-0.1 10^3/uL Neutrophils % (Manual) 77 % Lymphocytes % (Manual) 18 % Monocytes % (Manual) 3 % Eosinophils % (Manual) 2 % Blood Morphology Comment NORMAL Sodium Level 133 L 139 135-145 MMOL/L Potassium Level 4.2 3.6 3.6-5.0 MMOL/L Chloride Level 98 106 98-107 MMOL/L Carbon Dioxide Level 24 24 21-32 MMOL/L Anion Gap 11 9 5-14 MMOL/L Blood Urea Nitrogen 12 11 7-18 MG/DL Creatinine 1.22 0.83 0.60-1.30 MG/DL Estimat Glomerular Filtration Rate > 60 > 60 BUN/Creatinine Ratio 10 13 Glucose Level 509 *H 187 H 70-105 MG/DL Lactic Acid Level 1.91 0.50-2.00 MMOL/L Calcium Level 9.1 8.4 L 8.5-10.1 MG/DL Total Bilirubin 1.2 H 0.1-1.0 MG/DL Aspartate Amino Transf (AST/SGOT) 10 5-34 U/L Alanine Aminotransferase (ALT/SGPT) 17 0-55 U/L Alkaline Phosphatase 121 40-136 U/L C-Reactive Protein High Sensitivity 2.05 H 0.00-0.50 MG/DL Total Protein 7.0 6.4-8.2 GM/DL Albumin 4.2 3.2-4.5 GM/DL Glucometer 104 70-110 MG/DL My Orders Orders - WAGNER LEVINE MD Cbc With Automated Diff (11/15/16 23:14) Comprehensive Metabolic Panel (11/15/16 23:14) Hs C Reactive Protein (11/15/16 23:14) Lactic Acid Analyzer (11/15/16 23:14) Blood Culture (11/15/16 23:14) Saline Lock/Iv-Start (11/15/16 23:14) Ns Iv 1000 Ml (Sodium Chloride 0.9%) (11/15/16 23:14) Clindamycin Injection (Cleocin Injection (11/15/16 23:15) Dipht,Pertuss(Acell),Tet Adult (Boostrix (11/15/16 23:15) Manual Differential (11/15/16 23:20) Insulin (Regular) Human (Humulin R (Per (11/16/16 00:15) Accucheck Stat ONCE (11/16/16 00:46) Ketorolac Injection (Toradol Injection) (11/16/16 01:00) Saline Lock/Iv-Start (11/16/16 01:02) Ns Iv 1000 Ml (Sodium Chloride 0.9%) (11/16/16 01:02) Vancomycin Injection (Vancomycin Injecti (11/16/16 01:15) Medications Given in ED Current Medications Medications Dose Ordered Sig/Josefa Route Start Time Stop Time Status Last Admin Dose Admin Clindamycin Phosphate 900 mg/ Sodium Chloride 56 ml @ 100 mls/hr ONCE ONCE IV 11/15/16 23:15 11/15/16 23:48 DC 11/15/16 23:41 100 MLS/HR Diphtheria/ Tetanus/Acell Pertussis 0.5 ml ONCE ONCE IM 11/15/16 23:15 11/15/16 23:18 DC 11/15/16 23:31 0.5 ML Insulin Human Regular 10 unit ONCE ONCE IV 11/16/16 00:15 11/16/16 00:16 DC 11/16/16 00:15 10 UNIT Sodium Chloride 1,000 ml @ 0 mls/hr Q0M ONCE IV 11/15/16 23:14 11/15/16 23:18 DC 11/15/16 23:30 0 MLS/HR Vital Signs/I&O Vital Sign - Last 12Hours 11/15/16 11/16/16 11/16/16 11/16/16 22:45 01:51 04:15 04:45 Temp 97.1 98.7 99.1 Pulse 96 88 85 Resp 18 18 20 B/P (MAP) 128/87 124/57 Pulse Ox 99 98 98 O2 Delivery Room Air Room Air Blood Pressure Mean: 101 Progress Note : Time: 00:45 Progress Note Labs were ordered along with blood culture. Patient was found to be tachycardic with leukocytosis. He meets sepsis criteria. Bedside ultrasound performed by this provider showed something layering of fluid but no drainable abscess. Clindamycin was given as initial antibiotic therapy. This will be followed up by vancomycin. The rapid spread of the cellulitis on the arm is concerning especially given the use of doxycycline 200 mg at home within the last 24 hours. Patient is receiving Toradol for pain. Initial blood sugar was 509. He received 10 units of IV insulin. Patient also received a liter of IV fluids and remained tachycardic even after hydration. Departure Communication Time/Spoke to Admitting Phy: 00:[address] Concetta Monae Impression Impression: Primary Impression: Sepsis Qualified Codes: A41.9 - Sepsis, unspecified organism Additional Impressions: Left arm cellulitis Hyperglycemia Disposition: ADMITTED INPATIENT Condition: Improved Decision to Admit Reason: Admit from ER (General) Decision to Admit/Date: Nov 16, 2016 Time/Decision to Admit Time: 00:30 Departure-Patient Inst. Referrals: [facility] (PCP) Primary Care Physician KWAME MCCLAIN (Family) Primary Care Physician WAGNER LEVINE MD Nov 16, 2016 00:58
[2016-11-16] MEDS ORDERED: KETOROLAC 30 MG/ML VIAL IVP ONE (01:00)
[2016-11-16] MEDS ORDERED: NS IV 1000 ML 1,000 ML IV ONE (01:02)
[2016-11-16] MEDS ORDERED: VANCOMYCIN INJECTION 1,000 MG in NS (IVPB) 250 ML IV ONE (01:15)
--- OUTSIDE RECORDS SUMMARY | 2016-11-16 01:38 | XMS REPORT | Continuity of Care Document ---
Author Author [facility] Address Unknown Phone Unavailable Allergies [...] Procedures Code [place] [address] PSYCH DIAGNOSTIC EVALUATION 07/16/2012 69988 PSYCHO TESTING 1 HR W COMP 07/16/2012 12232 PSYTX PT&/FAMILY 45 MINUTES 01/14/2013 Results Encounters ACCT No. Visit Date/Time Discharge Status Pt. Type Provider Facility Loc./Unit Complaint [id number] 05/29/2013 16:03:00 05/29/2013 23: 59:59 CLS Outpatient OFELIA HOLCOMB DO [id number] 01/19/2013 17:52:00 01/19/2013 23: 59:59 CLS Outpatient OFELIA HOLCOMB DO [id number] 07/30/2012 15:23:00 07/30/2012 23: 59:59 CLS Outpatient HARI VAZQUEZ MD [id number] 07/15/2012 16:49:00 07/15/2012 23: 59:59 CLS Outpatient TEODORO GOOD, POLLY Shipman [id number] 07/11/2012 08:54:00 07/11/2012 23: 59:59 CLS Outpatient [id number] 05/28/2012 17:35:00 05/28/2012 23: 59:59 CLS Outpatient OFELIA HOLCOMB DO [id number] 05/23/2012 14:55:00 05/23/2012 23: 59:59 CLS Outpatient [id number] 03/12/2012 15:03:00 03/12/2012 23: 59:59 [place] [id number] 03/12/2012 15:03:00 03/12/2012 23: 59:59 CLS Outpatient [id number] 01/13/2013 17:50:00 Document Registration [id number] 10/30/2012 17:08:00 Document Registration
[2016-11-16] MEDS ORDERED: inSUlin DETERMIR 1 UNIT/0.01 ML (LEVEMIR) CHARGE PER UNIT SQ ONE (02:03)
[2016-11-16] MEDS: NS IV 1000 ML 1,000 ML IV SCH ×3 (02:30→21:31)
[2016-11-16 04:15] VITALS: BP 124/57
[2016-11-16 04:41] LABS: BASOPHILS % (AUTO) 0 % (0-10); EOSINOPHILS # (AUTO) 0.3 10^3/uL (0.0-0.3); EOSINOPHILS % (AUTO) 2 % (0-10); LYMPHOCYTES % (AUTO) 18 % (12-44); MEAN CORPUSCULAR HEMOGLOBIN 32 PG (25-34); MEAN CORPUSCULAR HGB CONC 35 G/DL (32-36); MEAN CORPUSCULAR VOLUME 91 FL (80-99); MEAN PLATELET VOLUME 8.8 FL (7.4-10.4); MONOCYTES # (AUTO) 1.4 X 10^3 (0.0-1.0); MONOCYTES % (AUTO) 8 % (0-12); NEUTROPHILS # (AUTO) 12.2 X 10^3 (1.8-7.8); NEUTROPHILS % (AUTO) 72 % (42-75); PLATELET COUNT 316 10^3/uL (130-400); RED BLOOD COUNT 4.52 10^6/uL (4.35-5.85); RED CELL DISTRIBUTION WIDTH 12.3 % (10.0-14.5); WHITE BLOOD COUNT 16.8 10^3/uL (4.3-11.0)
[2016-11-16] MEDS ORDERED: inSUlin DETERMIR 1 UNIT/0.01 ML (LEVEMIR) CHARGE PER UNIT SQ SCH (04:57)
[2016-11-16 05:00] LABS: ANION GAP 9 MMOL/L (5-14); BLOOD UREA NITROGEN 11 MG/DL (7-18); BUN/CREATININE RATIO 13; CALCIUM 8.4 MG/DL (8.5-10.1); CARBON DIOXIDE 24 MMOL/L (21-32); CHLORIDE 106 MMOL/L (98-107); CREATININE SERUM 0.83 MG/DL (0.60-1.30); GFR ESTIMATED > 60; GLUCOSE 187 MG/DL (70-105); POTASSIUM 3.6 MMOL/L (3.6-5.0); SODIUM 139 MMOL/L (135-145)
[2016-11-16] MEDS ORDERED: HYDROcodone/APAP 5 MG/325 MG (LORTAB) TAB PO PRN (05:00)
[2016-11-16] MEDS ORDERED: KETOROLAC 30 MG/ML VIAL IVP PRN (05:00)
[2016-11-16] MEDS: inSUlin (REGULAR) HUMAN 1 UNIT/0.01 ML (CHARGE PER UNIT) SC SCH ×4 (06:17→20:58)
[2016-11-16] MEDS ORDERED: NS (IVPB) 50 ML ONE (06:38)
[2016-11-16] MEDS ORDERED: inSUlin ASPART (NovoLOG) 1 UNIT/0.01 ML (CHARGE PER UNIT) SC SCH (07:00)
[2016-11-16] MEDS ORDERED: CLINDAMYCIN 900 MG/6ML (CLEOCIN) VIAL IV SCH (07:00)
[2016-11-16 08:00] VITALS: BP 130/79
[2016-11-16] MEDS: VANCOMYCIN 1,750 MG/NS 500 ML IVPB IV SCH ×4 (09:13→22:37)
[2016-11-16] MEDS ORDERED: ALPR1TAB7 PO (09:25)
[2016-11-16] MEDS ORDERED: ZOLP10TA5 PO (09:25)
[2016-11-16] MEDS ORDERED: IBUP-30 PO (09:28)
[2016-11-16] MEDS ORDERED: FEXO1TAB40 PO (09:28)
[2016-11-16 12:00] VITALS: BP 131/68
[2016-11-16] MEDS ORDERED: PSEUDOEPHEDRINE HCL 30 MG (SUDAFED) TAB PO PRN (13:00)
[2016-11-16] MEDS ORDERED: IBUPROFEN 800 MG (MOTRIN) TAB PO PRN (13:00)
[2016-11-16] MEDS ORDERED: ZOLPIDEM 5 MG (AMBIEN) TAB PO PRN (13:00)
[2016-11-16] MEDS: inSUlin ASPART (NovoLOG) 1 UNIT/0.01 ML (CHARGE PER UNIT) SC SCH ×2 (13:23→17:10)
[2016-11-16] MEDS: CLINDAMYCIN 900 MG/NS 50 ML IVPB IV SCH ×4 (13:34→21:50)
[2016-11-16] MEDS: HYDROcodone/APAP 10 MG/325 MG (LORTAB) TAB PO PRN (13:41)
[2016-11-16 16:58] VITALS: BP 143/78
[2016-11-16] MEDS: metFORMIN XR 500 MG (GLUCOPHAGE XR) TAB PO SCH (17:10)
[2016-11-16 20:43] VITALS: BP 148/81
--- NOTE | 2016-11-16 21:27 | History & Physicial (CHS) ---
HPI History of Present Illness: 31yo male presented to ER with complaints of LUE pain and swlling. Patient states he had noticed an area on his left upper arm that was tender and red. Thoguht it was a bug bite - no bug was seen. No fever. Edema and redness happened almost overnight whcih is why he sought care in ER. No recent trauma to area. The area has a tattoo but this is old. Lesion was spreading around his arm, so he became concerned. Has not had anything like this before. Source: patient Exam Limitations: no limitations Date seen by provider: Nov 16, 2016 Time Seen by Provider: 11:20 Attending Physician Concetta Monae MD PCP [facility] Date of Admission Nov 16, 2016 at 12:52 am Home Medications Home Medications Reviewed patient Home Medication Reconciliation Form Allergies Coded Allergies: No Known Drug Allergies (Unverified , 12/20/11) ZTU-Famtwm-Utohli Hx Patient Social History Alcohol Use: Rarely Uses Recreational Drug Use: No Smoking Status: Current Everyday Smoker Type Used: Cigarettes Recent Foreign Travel: No Contact w/other who traveled: No Recent Hopitalizations: No Recent Infectious Disease Expo: No Physical Abuse Screen: No Sexual Abuse: No Immunizations Up To Date Tetanus Booster (TDap): Unknown Family Medical History Family History: Hypertension 19 FATHER 19 MOTHER Myocardial infarction 19 MOTHER Seizure disorder G8 SISTER Review of Systems (CHC) Constitutional: no symptoms reported All Other Systems Reviewed Negative Unless Noted: Yes (Negative excepted noted.) Reviewed Test Results Reviewed Test Results Lab Laboratory Tests Test 11/15/16 23:20 11/16/16 02:13 11/16/16 04:08 11/16/16 12:00 Range/Units White Blood Count 16.0 H 16.8 H 4.3-11.0 10^3/uL Red Blood Count 4.99 4.52 4.35-5.85 10^6/uL Hemoglobin 15.7 14.3 13.3-17.7 G/DL Hematocrit 45 41 40-54 % Mean Corpuscular Volume 91 91 80-99 FL Mean Corpuscular Hemoglobin 32 32 25-34 PG Mean Corpuscular Hemoglobin Concent 35 35 32-36 G/DL Red Cell Distribution Width 12.3 12.3 10.0-14.5 % Platelet Count 349 316 130-400 10^3/uL Mean Platelet Volume 8.7 8.8 7.4-10.4 FL Neutrophils (%) (Auto) 78 H 72 42-75 % Lymphocytes (%) (Auto) 14 18 12-44 % Monocytes (%) (Auto) 7 8 0-12 % Eosinophils (%) (Auto) 1 2 0-10 % Basophils (%) (Auto) 0 0 0-10 % Neutrophils # (Auto) 12.5 H 12.2 H 1.8-7.8 X 10^3 Lymphocytes # (Auto) 2.2 3.0 1.0-4.0 X 10^3 Monocytes # (Auto) 1.1 H 1.4 H 0.0-1.0 X 10^3 Eosinophils # (Auto) 0.2 0.3 0.0-0.3 10^3/uL Basophils # (Auto) 0.0 0.0 0.0-0.1 10^3/uL Neutrophils % (Manual) 77 % Lymphocytes % (Manual) 18 % Monocytes % (Manual) 3 % Eosinophils % (Manual) 2 % Blood Morphology Comment NORMAL Sodium Level 133 L 139 135-145 MMOL/L Potassium Level 4.2 3.6 3.6-5.0 MMOL/L Chloride Level 98 106 98-107 MMOL/L Carbon Dioxide Level 24 24 21-32 MMOL/L Anion Gap 11 9 5-14 MMOL/L Blood Urea Nitrogen 12 11 7-18 MG/DL Creatinine 1.22 0.83 0.60-1.30 MG/DL Estimat Glomerular Filtration Rate > 60 > 60 BUN/Creatinine Ratio 10 13 Glucose Level 509 *H 187 H 70-105 MG/DL Lactic Acid Level 1.91 0.50-2.00 MMOL/L Calcium Level 9.1 8.4 L 8.5-10.1 MG/DL Total Bilirubin 1.2 H 0.1-1.0 MG/DL Aspartate Amino Transf (AST/SGOT) 10 5-34 U/L Alanine Aminotransferase (ALT/SGPT) 17 0-55 U/L Alkaline Phosphatase 121 40-136 U/L C-Reactive Protein High Sensitivity 2.05 H 0.00-0.50 MG/DL Total Protein 7.0 6.4-8.2 GM/DL Albumin 4.2 3.2-4.5 GM/DL Glucometer 104 309 H 70-110 MG/DL Test 7/14/17 14:47 11/16/16 20:37 Range/Units Glucometer 195 H 71 70-110 MG/DL Physical Exam-([facility]) Physical Exam Vital Signs VS - Last 72 Hours, by Label 11/15/16 11/16/16 11/16/16 11/16/16 22:45 01:51 04:15 04:45 Temp 97.1 98.7 99.1 Pulse 96 88 85 Resp 18 18 20 B/P (MAP) 128/87 124/57 Pulse Ox 99 98 98 O2 Delivery Room Air Room Air 11/16/16 11/16/16 11/16/16 11/16/16 08:00 12:00 16:58 20:43 Temp 98.4 97.7 97.1 98.2 Pulse 80 74 73 84 Resp 20 16 16 16 B/P (MAP) 130/79 131/68 143/78 148/81 Pulse Ox 97 98 98 99 O2 Delivery Room Air Room Air Room Air Room Air Capillary Refill : Less Than 3 Seconds General Appearance: WD/WN, no apparent distress HEENT: PERRL/EOMI, normal ENT inspection, pharynx normal Neck: non-tender, full range of motion, supple, normal inspection Respiratory: chest non-tender, lungs clear, normal breath sounds, no respiratory distress, no accessory muscle use Cardiovascular: regular rate, rhythm, no edema, no gallop, no JVD, no murmur Gastrointestinal: normal bowel sounds, non tender, soft, no organomegaly Extremities: normal range of motion, non-tender, normal inspection, no pedal edema, no calf tenderness, normal capillary refill 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 will keep on vanc as this is presenting much like a MRSA abscess. pt states an US was done - I still do not have these results. if christa abscess is not improve by the AM, may need a general surgery consult. however, I do believe we might be able to do an I/D at the bedside if the US does not show a deep pocket of infection. UNCONTROLLED T2 DM HALFWAY USE OF INSULIN ADM - restart home regimen, 1800kcal diet. needs much closer control and follow up in [facility] future as an outpatient. TOBACCO ABUSE ADM - counseled cessation, discussed the delays tobacco abuse can have on wound healing. DVT PROPH: pt fully ambulatory Diagnosis/Problems: Clinical Quality Measures DVT/VTE Risk/Contraindication: Risk Factor Score Per Nursin RFS Level Per Nursing on Admit: 3=High Copy Copies To 1: CONCETTA MONAE MD, JULIE A MD Nov 16, 2016 9:27 pm
[2016-11-16] MEDS: inSUlin DETERMIR 1 UNIT/0.01 ML (LEVEMIR) CHARGE PER UNIT SQ SCH (21:50)
[2016-11-16 23:50] VITALS: BP 109/69
[2016-11-17] MEDS ORDERED: VANCOMYCIN 1500 MG/NS 500 ML IVPB IV SCH ×2 (01:00)
[2016-11-17 03:40] VITALS: BP 99/57
[2016-11-17 04:35] LABS: MEAN PLATELET VOLUME 8.7 FL (7.4-10.4); RED BLOOD COUNT 4.58 10^6/uL (4.35-5.85); RED CELL DISTRIBUTION WIDTH 12.3 % (10.0-14.5); WHITE BLOOD COUNT 13.7 10^3/uL (4.3-11.0)
[2016-11-17 05:04] LABS: ANION GAP 9 MMOL/L (5-14); BLOOD UREA NITROGEN 13 MG/DL (7-18); BUN/CREATININE RATIO 16; CALCIUM 8.6 MG/DL (8.5-10.1); CARBON DIOXIDE 24 MMOL/L (21-32); CHLORIDE 104 MMOL/L (98-107); CREATININE SERUM 0.83 MG/DL (0.60-1.30); GFR ESTIMATED > 60; GLUCOSE 278 MG/DL (70-105); POTASSIUM 3.9 MMOL/L (3.6-5.0); SODIUM 137 MMOL/L (135-145)
[2016-11-17] MEDS: metFORMIN XR 500 MG (GLUCOPHAGE XR) TAB PO SCH ×2 (06:48→16:58)
[2016-11-17] MEDS: CLINDAMYCIN 900 MG/NS 50 ML IVPB IV SCH ×6 (06:48→21:42)
[2016-11-17] MEDS: HYDROcodone/APAP 10 MG/325 MG (LORTAB) TAB PO PRN ×2 (06:48→18:30)
[2016-11-17] MEDS: inSUlin (REGULAR) HUMAN 1 UNIT/0.01 ML (CHARGE PER UNIT) SC SCH ×4 (06:48→21:36)
[2016-11-17] MEDS: NS IV 1000 ML 1,000 ML IV SCH ×2 (06:51→12:00)
[2016-11-17] MEDS: inSUlin ASPART (NovoLOG) 1 UNIT/0.01 ML (CHARGE PER UNIT) SC SCH ×2 (07:35→12:21)
[2016-11-17 08:00] VITALS: BP 127/68
[2016-11-17] MEDS: VANCOMYCIN 1,750 MG/NS 500 ML IVPB IV SCH ×2 (08:41)
[2016-11-17] MEDS: lisINopril 10 MG (PRINIVIL) TAB PO SCH (08:41)
[2016-11-17] MEDS: inSUlin DETERMIR 1 UNIT/0.01 ML (LEVEMIR) CHARGE PER UNIT SQ SCH ×2 (08:41→21:42)
[2016-11-17] MEDS ORDERED: LORATADINE (CLARITIN) 10 MG TAB PO PRN (09:00)
[2016-11-17 09:09] VITALS: BP 127/68
--- NOTE | 2016-11-17 11:23 | Discharge Summary ---
Diagnosis/Chief Complaint Date of Admission Nov 16, 2016 at 00:52 Date of Discharge November 18, 2016 Admission Diagnosis Admission Diagnosis Left Upper Extremity cellulitis with Abcess IDDM: Uncontrolled tobacco use Discharge Diagnosis See Above Chief Complaint/HPI Chief Complaint/HPI 31yo male presented to ER with complaints of LUE pain and swlling. Patient states he had noticed an area on his left upper arm that was tender and red. Thoguht it was a bug bite - no bug was seen. No fever. Edema and redness happened almost overnight whcih is why he sought care in ER. No recent trauma to area. The area has a tattoo but this is old. Lesion was spreading around his arm, so he became concerned. Has not had anything like this before. Discharge Summary-Simple/Stand Consultations Dr Ocasio: General Surgery Discharge Physical Examination Allergies: Coded Allergies: No Known Drug Allergies (Unverified , 12/20/11) Vitals & I&Os Vital Sign - Last 12Hours Date Time Temp Pulse Resp B/P (MAP) Pulse Ox O2 Delivery O2 Flow Rate FiO2 11/17/16 09:09 96.0 67 20 127/68 96 Room Air Intake and Output 11/17/16 00:00 Intake Total 1780 ml Output Total 600 ml Balance 1180 ml General Appearance: Alert, Oriented X3, Cooperative HEENT: Atraumatic Respiratory: Clear to Auscultation, Normal Air Movement Cardiovascular: Regular Rate, No Murmurs Extremities: Normal Pulses, Other (Left upper extremity with erythema and induration, no drainage, warm to touch, streaking down arm) Neuro: Normal Gait, Normal Speech, Strength at 5/5 X4 Ext, Sensation Intact Psych/Mental Status: Mental Status NL, Mood NL Hospital Course See final discharge diagnosis. Discussion & Recommendations 31 yo M with Cellulitis and Abscess improving today with IV antibiotics. Will have surgery see patient for drainage. Ok to discharge home on PO antibiotics after procedure. 11/18 - Patient was not NPO and thus had procedure this AM instead of yesterday. Ok to d/c home today with f/u surgery Sat or to have packing removed. Discharge Condition at discharge Stable Instructions to patient/family Please see electonic discharge instructions given to patient. Discharge Medications Reviewed and agree with Discharge Medication list on patient's Discharge Instruction sheet Clinical Quality Measures DVT/VTE Risk/Contraindication: Risk Factor Score Per Nursin RFS Level Per Nursing on Admit: 3=High Copy Copies To 1: RONALDO, AMANDA Beltrán MD Nov 17, 2016 11:23
[2016-11-17] MEDS ORDERED: DOXY100T2 PO (11:25)
--- NOTE | 2016-11-17 11:28 | Discharge Instructions ---
Discharge Inst-[facility] Discharge Medications New, Converted or Re-Newed RX: Other (Patient already has antiboitic at home) New Medications: Doxycycline Hyclate (Doxycycline Hyclate) 100 Mg Tablet 100 MG PO BID for 10 Days, TAB Continued Medications: Fexofenadine/Pseudoephedrine (Poonam-D 12 Hour Tablet) 1 Each Tab.er.12h 1 TAB PO DAILY PRN for ALLERGIES, TAB Hydrocodone/Acetaminophen (Hydrocodon-Acetaminophn 10-325) 1 Each Tablet 1 TAB PO BID PRN for PAIN-MODERATE, TAB Ibuprofen (Advil) 200 Mg Tablet 600-800 MG PO Q8H PRN for PAIN-MILD, TAB Insulin Aspart (Novolog) 100 Unit/1 Ml Susp 25 UNITS SC TIDWM, EA Insulin Detemir (Levemir Flextouch) 100 Unit/1 Ml Insuln.pen 30 UNITS SC BID, EA Lisinopril (Lisinopril) 10 Mg Tablet 10 MG PO DAILY, TAB LAST FILLED #30 09-13-16 Metformin HCl (Metformin HCl ER) 500 Mg Tab.er.24h 1000 MG PO BID, TAB LAST FILLED #120 08-01-16 TAKES 2 (500MG) TABLETS Zolpidem Tartrate (Zolpidem Tartrate) 10 Mg Tablet 10 MG PO HS PRN for SLEEP, TAB Discontinued Medications: Alprazolam (Alprazolam) 1 Mg Tablet 1 MG PO BID PRN for ANXIETY, TAB Patient Instructions Goal/Follow Up Appt: You have a follow up appt with Donnell Suggs on November 22 @ 840 AM Patient Instructions: - Make sure that you keep area clean - Soak in warm water or use warm compresses at least 3 times per day Return to The Hospital For: - Increasing pain, numbness or weakness in arm or hand - Unable to tolerate antibiotics Activity & Diet Discharge Diet: ADA Diet Activity as Tolerated: Yes Copy Copies To 1: [facility] R MD Nov 17, 2016 11:28
[2016-11-17 12:00] VITALS: BP 146/83
--- NOTE | 2016-11-17 12:02 | Consultation ---
History of Present Illness History of Present Illness Patient Consulted On(thomas/time) 11/17/16 11:56 Date Seen by Provider: Nov 17, 2016 Time Seen by Provider: 11:12 History of Present Illness Surgery asked to consult regarding LUE cellulitis/abscess, need for I&D HPI: Pt is a 31-year-old male presented to the emergency room with complaints of left arm pain and swelling that started am. The area affected has expanded rapidly with worsening symptoms throughout the day today. Margins were marked at 16:30 and he has had marked expansion of erythema since then. The affected area had at least doubled in size. Patient took doxycycline 200 mg at home this morning. He denies any fever, nausea, vomiting, or other acute symptoms. Patient does not know what the inciting factor was. He does not recall being bitten or stung. Denies trauma to the area. Patient has diabetes and has had elevated blood sugars. When seen today rating pain as 4 out of 10 on 1-10 scale, no radiation of pain. Swelling still present but redness seems to be going down with IV ABX. Still points to one area that is in the middle of redness that is very tender. Allergies and Home Medications Allergies Coded Allergies: No Known Drug Allergies (Unverified , 12/20/11) Home Medications Alprazolam 1 Mg Tablet, 1 MG PO BID PRN for ANXIETY, (Reported) Doxycycline Hyclate 100 Mg Tablet, 100 MG PO BID for 10 Days Prescribed by: AMANDA WATT on 11/17/16 1125 Fexofenadine/Pseudoephedrine 1 Each Tab.er.12h, 1 TAB PO DAILY PRN for ALLERGIES , (Reported) Hydrocodone/Acetaminophen 1 Each Tablet, 1 TAB PO BID PRN for PAIN-MODERATE, ( Reported) Ibuprofen 200 Mg Tablet, 600-800 MG PO Q8H PRN for PAIN-MILD, (Reported) Insulin Aspart 100 Unit/1 Ml Susp, 25 UNITS SC TIDWM, (Reported) Insulin Detemir 100 Unit/1 Ml Insuln.pen, 30 UNITS SC BID, (Reported) Lisinopril 10 Mg Tablet, 10 MG PO DAILY, (Reported) LAST FILLED #30 09-13-16 Metformin HCl 500 Mg Tab.er.24h, 1,000 MG PO BID, (Reported) LAST FILLED #120 3-29-17 TAKES 2 (500MG) TABLETS Zolpidem Tartrate 10 Mg Tablet, 10 MG PO HS PRN for SLEEP, (Reported) Past Bjkkxna-Xowjlf-Cxbbyc Hx Patient Social History Alcohol Use: Rarely Uses Recreational Drug Use: No Smoking Status: Current Everyday Smoker Type Used: Cigarettes Recent Foreign Travel: No Contact w/Someone Who Travel: No Recent Infectious Disease Expo: No Recent Hopitalizations: No Physical Abuse Screen: No Sexual Abuse: No Immunizations Up To Date Tetanus Booster (TDap): Unknown Seasonal Allergies Seasonal Allergies: No Surgeries HX Surgeries: Yes (L SHOULDER SCOPE, JAW FX/REPAIR) Surgeries: Orthopedic Respiratory Hx Respiratory Disorders: No Cardiovascular Hx Cardiac Disorders: Yes Cardiac Disorders: Hypertension Neurological Hx Neurological Disorders: No Reproductive System Hx Reproductive Disorders: No Sexually Transmitted Disease: No HIV/AIDS: No Genitourinary Hx Genitourinary Disorders: No Gastrointestinal Hx Gastrointestinal Disorders: No Musculoskeletal Hx Musculoskeletal Disorders: No Endocrine Hx Endocrine Disorders: Yes Endocrine Disorders: Diabetes, Insulin dep HEENT HX ENT Disorders: No Cancer Hx Cancer: No Psychosocial Hx Psychiatric Problems: Yes Behavioral Health Disorders: Anxiety Integumentary HX Skin/Integumentary Disorder: No Blood Transfusions Hx Blood Disorders: No Adverse Reaction to a Blood Tr: No Family Medical History Significant Family History: CAD Under 55 Years Old (Mother had UT in early 40's ), Hypertension, Seizures Family Medial History: Hypertension 19 FATHER 19 MOTHER Myocardial infarction 19 MOTHER Seizure disorder G8 SISTER Review of Systems-General Constitutional: chills, diaphoresis, malaise EENTM: No blurred vision, No epistaxis, No hearing loss, No mouth swelling, No throat swelling Respiratory: No cough, No dyspnea on exertion, No hemoptysis Cardiovascular: No chest pain, No palpitations Gastrointestinal: No abdominal pain, No diarrhea, No hematemesis Genitourinary: No dysuria, No hematuria Musculoskeletal: joint pain, joint swelling, muscle stiffness, other (pain in LUE, did have some weakness which improved) Skin: see HPI, No hx of skin cancer Psychiatric/Neurological: Anxiety, Emotional Problems, Denies Seizure, Denies Tingling, Denies Tremors Other denies abnormal bleeding or bruising, denies heat or cold intolerance Physical Exam-General Problems Physical Exam Vital Signs Vital Sign - Last 12Hours 11/15/16 11/16/16 22:45 04:15 Temp 97.1 Pulse 96 Resp 18 B/P (MAP) 128/87 Pulse Ox 99 O2 Delivery Room Air Capillary Refill : Less Than 3 Seconds General Appearance: WD/WN, mild distress Eyes: Bilateral Eye EOMI, Bilateral Eye PERRL HEENT: pharynx normal, No scleral icterus (R), No scleral icterus (L) Neck: full range of motion, supple, No thyromegaly Respiratory: chest non-tender, lungs clear, normal breath sounds, no respiratory distress, no accessory muscle use Cardiovascular: normal peripheral pulses, regular rate, rhythm, no murmur Gastrointestinal: normal bowel sounds, non tender, soft, no organomegaly, no pulsatile mass Rectal: deferred Back: no CVA tenderness, no vertebral tenderness Extremities: no pedal edema, no calf tenderness, other (LUE + edemea, erythema , fluctuance, tender to palpation, erythema seems to be inside previous lines, but still covers a large area) Neurologic/Psychiatric: audit reviewer II-XII nml as tested, no motor/sensory deficits, normal mood/affect, oriented x 3 Skin: normal color, warm/dry Lymphatic: no adenopathy (neck, axilla or groin) Data Review Labs Laboratory Tests 11/16/16 12:00: Glucometer 309H 11/16/16 14:47: Glucometer 195H 11/16/16 20:37: Glucometer 71 11/17/16 04:08: White Blood Count 13.7H, Red Blood Count 4.58, Hemoglobin 14.4, Hematocrit 42, Mean Corpuscular Volume 92, Mean Corpuscular Hemoglobin 31, Mean Corpuscular Hemoglobin Concent 34, Red Cell Distribution Width 12.3, Platelet Count 290, Mean Platelet Volume 8.7, Sodium Level 137, Potassium Level 3.9, Chloride Level 104, Carbon Dioxide Level 24, Anion Gap 9, Blood Urea Nitrogen 13, Creatinine 0.83, Estimat Glomerular Filtration Rate > 60, BUN/Creatinine Ratio 16, Glucose Level 278H, Calcium Level 8.6 11/17/16 05:53: Glucometer 225H 11/17/16 08:30: Vancomycin Level Trough 8.4L 11/17/16 08:40: Glucometer 308H 11/17/16 11:36: Glucometer 83 Microbiology 11/15/16 Blood Culture - Preliminary, Resulted No growth Assessment/Plan Assessment/Plan Assessment/Plan 1. LUE abscess/cellulitis 2. DM Insulin Dependent Plan NPO, IV fluids, IV ABX, pain control. US LUE. Pt ate breakfast will need to wait at least 8 hours before taking pt for I&D. Incision and drainage with possible packing; discussed risks and complications with pt including but not limited to pain, bleeding, infection, scar and need for further procedure. Pt was told that his DM will make infection worse and decrease healing. Must keep blood sugar under good control. Smoking also delays healing, pt urged to quit. Clinical Quality Measures DVT/VTE Risk/Contraindication: Risk Factor Score Per Nursin RFS Level Per Nursing on Admit: 3=High MILLIE HAY DO Nov 17, 2016 12:02
--- NOTE | 2016-11-17 13:15 | Diagnostic Imaging Report ---
INDICATION: Cellulitis of the left upper extremity. TECHNIQUE: Multiple real time castrejon scale sonographic images were obtained of the left upper extremity. CORRELATION STUDY: None FINDINGS: Within the soft tissues in the area of concern, there does appear to be slightly complex fluid collection present. This is slightly elongated and relatively thin. A definitively encapsulated appearance does not appear to be present. There is no overt hyperemia. IMPRESSION: 1.There is a slightly thin complex fluid collection in the soft tissues, may be reflective of early abscess formation. However, this is fairly small. Dictated by: Dictated on workstation # [id number]
[2016-11-17] MEDS: D5 1/2 NS 1000 ML IV SOLUTION 1,000 ML IV SCH ×2 (14:07→22:23)
--- NOTE | 2016-11-17 16:16 | Progress Note (SOAP) ---
Subjective Subjective/Events-last exam Doing better since starting IV antibiotics. Surgery to see patient today. Pain better controlled Review of Systems Time Seen by Provider: 11:15 Cardiovascular: No: Chest Pain Gastrointestinal: No: Abdominal Pain, Nausea, Vomiting Musculoskeletal: arm pain Objective Exam Last Set of Vital Signs Vital Signs Date Time Temp Pulse Resp B/P (MAP) Pulse Ox O2 Delivery O2 Flow Rate FiO2 11/17/16 12:00 98.7 91 20 146/83 96 Room Air Capillary Refill : Less Than 3 Seconds I&O Bad tableGeneral: Alert, Oriented X3, Cooperative, No Acute Distress Lungs: Clear to Auscultation, Normal Air Movement Heart: Regular Rate, No Murmurs Skin: Other (erythema and induration present on LUE on posterior portion, no drainage, increased warmth to touch) Results/Procedures Lab Laboratory Tests 11/16/16 20:37: Glucometer 71 11/17/16 04:08: White Blood Count 13.7H, Red Blood Count 4.58, Hemoglobin 14.4, Hematocrit 42, Mean Corpuscular Volume 92, Mean Corpuscular Hemoglobin 31, Mean Corpuscular Hemoglobin Concent 34, Red Cell Distribution Width 12.3, Platelet Count 290, Mean Platelet Volume 8.7, Sodium Level 137, Potassium Level 3.9, Chloride Level 104, Carbon Dioxide Level 24, Anion Gap 9, Blood Urea Nitrogen 13, Creatinine 0.83, Estimat Glomerular Filtration Rate > 60, BUN/Creatinine Ratio 16, Glucose Level 278H, Calcium Level 8.6 11/17/16 05:53: Glucometer 225H 11/17/16 08:30: Vancomycin Level Trough 8.4L 11/17/16 08:40: Glucometer 308H 11/17/16 11:36: Glucometer 83 11/17/16 13:50: Glucometer 79 Microbiology 11/15/16 Blood Culture - Preliminary, Resulted No growth Assessment/Plan Assessment/Plan Admission Dx Left Upper Extremity cellulitis with Abcess IDDM: Uncontrolled tobacco use Plan FOLLICULITIS/ABSCESS CELLULITIS ADM - due to high WBC, blood cx drawn - are NG so far. will keep on vanc as this is presenting much like a MRSA abscess. pt states an US was done - I still do not have these results. if christa abscess is not improve by the AM, may need a general surgery consult. however, I do believe we might be able to do an I/D at the bedside if the US does not show a deep pocket of infection. 11/17 - Surgery to see patient, spoke with Dr Ocasio and he is going to take patient to surgery, patient was not NPO so he will do it in the AM UNCONTROLLED T2 DM ALF USE OF INSULIN ADM - restart home regimen, 1800kcal diet. needs much closer control and follow up in the future as an outpatient. 11/17 - Order A1c in am, patient currently NPO, q6 hrs blood sugar checks, 1/2 dose of long acting insulin while NPO, Start SSI TOBACCO ABUSE ADM - counseled cessation, discussed the delays tobacco abuse can have on wound healing. DVT PROPH: pt fully ambulatory FEN: NPO Dispo: Home after I&D to continue PO antibiotics as outpatient Diagnosis/Problems: Clinical Quality Measures DVT/VTE Risk/Contraindication: Risk Factor Score Per Nursin RFS Level Per Nursing on Admit: 3=High AMANDA WATT MD Nov 17, 2016 4:16 pm
[2016-11-17 16:33] VITALS: BP 131/69
[2016-11-17 20:00] VITALS: BP 134/76
[2016-11-17] MEDS: VANCOMYCIN 2000 MG/NS 500 ML IVPB IV SCH ×2 (22:22)
[2016-11-18] VITALS: BP 138/91
[2016-11-18] MEDS: D5 1/2 NS 1000 ML IV SOLUTION 1,000 ML IV SCH (04:18)
[2016-11-18] MEDS: metFORMIN XR 500 MG (GLUCOPHAGE XR) TAB PO SCH (05:30)
[2016-11-18] MEDS: inSUlin (REGULAR) HUMAN 1 UNIT/0.01 ML (CHARGE PER UNIT) SC SCH ×2 (05:30→09:53)
[2016-11-18] MEDS: CLINDAMYCIN 900 MG/NS 50 ML IVPB IV SCH ×2 (05:38)
[2016-11-18] MEDS: VANCOMYCIN 2000 MG/NS 500 ML IVPB IV SCH ×2 (07:56)
[2016-11-18 08:00] VITALS: BP 138/79
[2016-11-18] MEDS ORDERED: BUP/EPI 0.25% 1:200,000 (MARCAINE) 10 ML VIAL IJ ONE (08:48)
[2016-11-18] MEDS ORDERED: LACTATED RINGERS 1,000 ML IV ONE (08:51)
[2016-11-18] MEDS ORDERED: SEVOFLURANE (ULTANE) 15 ML INHAL SOLN ONE ×3 (08:51→09:52)
[2016-11-18] MEDS ORDERED: proPOfol 200 MG/20 ML (DIPRIVAN) VIAL IV ONE (08:51)
[2016-11-18] MEDS ORDERED: fentaNYL INJECTION 100 MCG/2 ML AMP ONE (08:51)
[2016-11-18] MEDS ORDERED: ONDANSETRON 4 MG/2 ML (SDV) Z0FRAN ONE ×2 (08:51→09:31)
[2016-11-18] MEDS ORDERED: MIDAZOLAM 2 MG/2 ML (VERSED) VIAL ONE (08:51)
[2016-11-18] MEDS ORDERED: LIDOCAINE PF 2% 5 ML (XYLOCAINE) VIAL ONE (08:51)
[2016-11-18] MEDS ORDERED: LIDOCAINE/EPI 1%-1:200,000 (XYLOCAINE) 30 ML VIAL ONE (09:04)
[2016-11-18] MEDS: lisINopril 10 MG (PRINIVIL) TAB PO SCH (09:11)
[2016-11-18] MEDS ORDERED: HYDROmorphone (DILAUDID) 2 MG/ML VIAL ONE (09:30)
[2016-11-18] MEDS ORDERED: morphine INJ 10 MG/ML 1ML (SYR OR VIAL) ONE (09:31)
[2016-11-18] MEDS ORDERED: LACTATED RINGERS 1,000 ML IV PRN (09:45)
--- NOTE | 2016-11-18 09:52 | Progress Note-Post Operative ---
Post-Operative Progess Note Surgeon (s)/Nursing Support Worker (s) Surgeon MILLIE HAY DO Nursing Support Worker: none Pre-Operative Diagnosis Left upper arm abscess/cellulitis Post-Operative Diagnosis same, culture pending Procedure & Operative Findings Date of Procedure 11/18/16 Procedure Performed/Findings I&D with packing Anesthesia Type GET Estimated Blood Loss Estimated blood loss (mL): less than 3ml Specimens/Packing Specimens Removed abscess fluid for culture Packin/4" iodophor packing MILLIE HAY DO Nov 18, 2016 09:52
[2016-11-18] MEDS ORDERED: inSUlin ASPART (NovoLOG) 1 UNIT/0.01 ML (CHARGE PER UNIT) ONE (11:42)
[2016-11-18] MEDS ORDERED: SULF-222 PO (11:48)
[2016-11-18] MEDS ORDERED: INSU100V16 SC (11:48)
[2016-11-18] MEDS: inSUlin ASPART (NovoLOG) 1 UNIT/0.01 ML (CHARGE PER UNIT) SC SCH (11:49)
[2016-11-18] MEDS: inSUlin DETERMIR 1 UNIT/0.01 ML (LEVEMIR) CHARGE PER UNIT SQ SCH (11:50)
[2016-11-18 13:10] VITALS: BP 138/79
--- NOTE | 2016-11-19 02:50 | OPERATIVE REPORT ---
PROCEDURE PHYSICIAN: MILLIE OCASIO DATE OF PROCEDURE: 11/16/2016 PREOPERATIVE DIAGNOSIS: Left upper arm abscess cellulitis. POSTOPERATIVE DIAGNOSIS: Left upper arm abscess cellulitis. Culture pending. SURGEON: Dr. Ocasio EPIC KALEIDOSCOPE ANALYST: None. ANESTHESIA: General endotracheal tube. PROCEDURE: Incision and drainage with rough debridement and packing with Iodoform packing. BLOOD LOSS: Less than 3 mL. FLUIDS: Per anesthesia. POSTOPERATIVE: Stable. INDICATION FOR THE PROCEDURE: The patient is a 31-year-old male who had a cellulitis abscess on the upper extremity. It was actually getting a little better but today even though the redness is small than it was before, it is now all concentrated right in his left upper arm over the triceps area. FINDINGS: The patient had minimal purulent fluid but large pocket in the left upper arm. Open, drained, debrided and then packed. PROCEDURE NOTE: After informed consent was obtained patient brought to the operating room, sterilely prepped and draped in the normal fashion. Made an incision with along the inside of his tattoo to stay right over the top portion of the abscess. Needle got a little bit of purulent fluid, this was cultured and sent to pathology then to opened the pocket all around in about a 6 to 7 cm diameter area trying to free up ay loculation. I roughly debrided this with 4 x 4's. Hemostasis obtained using Bovie electrocautery and then elected to place 1/4 inch Iodoform packing. Packing was placed. The outer arm was cleaned and dried and then a pressure dressing placed and the patient then transferred to the recovery room in stable condition. Sponge, instrument and needle count correct at the end of the case. Job ID: [id number] Dictated Date: 11/18/2016 09:54:51 Diet Assistant Date: 11/19/2016 02:42:44 / tbk
[2016-11-19] MEDS ORDERED: TROUGH ORDER-PHARMACY XX NR (08:00)
--- NOTE | 2016-11-19 12:18 | Physician Query Clarification ---
PQ-Further Specificity Admission/Discharge Admission Date: Nov 16, 2016 at 00:52 Discharge Date: Nov 18, 2016 at 13:15 The medical record reflects the following clinical scenario: History/Risk Factors: Diabetes type 2 w/hyperglycemia Clinical Findings: lt arm swelling Treatment: i&D Question: Can you further specify the deepest tissue incised and drained? per the clinical indicators above? Please document below. 1. Subcutaneous tissue and fascia 2. Muscle 3. Other, with explanation of the clinical findings. 4. Clinically undetermined, no explanation for the clinical findings. PHYSICIAN RESPONSE Can you specify per above: 1 In responding to this query, please exercise your independent professional judgment. The purpose of this communication is to more accurately reflect the complexity of your patients condition. The fact that a question is asked does not imply that any particular answer is desired or expected. Thank you for your timely response to this clarification. Requestors name: Marcelo THIS PHYSICIAN QUERY FORM IS A PERMANENT PART OF THE MEDICAL RECORD MARCELO BAHENA Nov 19, 2016 12:18 MILLIE HAY DO Nov 21, 2016 11:47
== END 2016-11-18 13:15 | disposition home or self-care (01) | DRG 581 ==
LOC: EDUNIT# 22:38 → ER 22:40 → 4TH 11-16 00:52
PROVIDERS: ADMIT Pediatrics; ATTEND Pediatrics
PROC: 0J9F0ZZ Drainage of Left Upper Arm Subcutaneous Tissue and Fascia, Open Approach (ICD-10-PCS; principal; 2016-11-16)
DX: L03.114 Cellulitis of left upper limb (principal); E11.65 Type 2 diabetes mellitus with hyperglycemia; Z79.4 Long term (current) use of insulin; I10 Essential (primary) hypertension; Z72.0 Tobacco use; Z23 Encounter for immunization
CPT/HCPCS: 36415; 76881; 80048; 80053; 80202; 82962; 83605; 85007; 85025; 85027; 86141; 87040; 87070; 87075; 87077; 87081; 87186; 87205; 90471; 90715; 96361; 96365; 96367; 96375

== ENCOUNTER → 2016-11-23 | Outpatient (CLI) | payer OTHER ==
[~2016-11-23] MED LIST changes: +DOXY100T2 PO; +FEXO1TAB40 PO; +IBUP-30 PO; +SULF-222 PO
== END ==
LOC: RT 08:19
PROVIDERS: ATTEND Nurse Practitioner Community Health
DX: R56.9 Unspecified convulsions (principal)
CPT/HCPCS: 95819